=== PATIENT | male | born 1975 | race Two or more races ===

== ENCOUNTER 2016-09-23 08:46 | Emergency (ER) | payer OTHER ==
[~2016-09-23 08:46] MED LIST: LIPI10 PO; LORAZEPAM2 MG PO; OMEPRAZOLE DR20 M1 PO
[2016-09-23 10:49] VITALS: BP 120/78
== END 2016-09-23 10:49 | disposition home or self-care (01) ==
LOC: ED 08:46
DX: J02.9 Acute pharyngitis, unspecified (principal); M79.1 Myalgia; E78.00 Pure hypercholesterolemia, unspecified; K21.9 Gastro-esophageal reflux disease without esophagitis
CPT/HCPCS: 83880

== ENCOUNTER 2017-04-12 01:14 | Emergency (ER) | payer OTHER ==
[2017-04-12 04:13] VITALS: BP 147/90
== END 2017-04-12 04:14 | disposition home or self-care (01) ==
LOC: ED 01:14
DX: R06.00 Dyspnea, unspecified (principal); R07.9 Chest pain, unspecified; E78.00 Pure hypercholesterolemia, unspecified; K21.9 Gastro-esophageal reflux disease without esophagitis
CPT/HCPCS: Q0092

== ENCOUNTER 2017-10-08 19:22 | Emergency (ER) | payer OTHER ==
[2017-10-08 20:46] LABS: BASOPHIL % 0.4 % (0-2); PLATELET COUNT 239 x10^3mcL (130-400); RED CELL DISTRIBUTION WIDTH 12.7 % (11.5-14.5)
[2017-10-08 20:59] LABS: CALCIUM 8.6 mg/dL (8.5-10.1); CARBON DIOXIDE 25.1 mmol/L (21-32); CHLORIDE SERUM 105 mmol/L (98-107); CREATININE SERUM 1.1 mg/dL (0.7-1.3); GFR1 > 60 mL/min; GLUCOSE SERUM 98 mg/dL (74-106); POTASSIUM SERUM 3.6 mmol/L (3.5-5.1); SODIUM SERUM 141 mmol/L (136-145)
[2017-10-08 21:02] LABS: AMPHETAMINE QUAL UR NONE DETECTED (NEG <=1000)
[2017-10-08 21:04] LABS: ALKALINE PHOSPHATASE 87 U/L (46-116); ALT/SGPT 131 U/L (16-63); AST/SGOT 52 U/L (15-37); BILIRUBIN TOTAL 1.3 mg/dL (0.20-1.00); TOTAL PROTEIN, SERUM 7.7 g/dL (6.4-8.2)
[2017-10-09 00:01] VITALS: BP 127/97
== END 2017-10-09 00:01 | disposition home or self-care (01) ==
LOC: ED 19:22
PROVIDERS: Emergency Medicine
DX: R07.89 Other chest pain (principal); R06.02 Shortness of breath; E78.00 Pure hypercholesterolemia, unspecified; K21.9 Gastro-esophageal reflux disease without esophagitis; F41.9 Anxiety disorder, unspecified; Z88.0 Allergy status to penicillin
CPT/HCPCS: 83880; J7030; Q0092

== ENCOUNTER 2018-10-10 12:17 | Emergency (ER) | payer SELFPAY ==
[~2018-10-10] VITALS: Ht 167.6 cm; Wt 84.8 kg
[2018-10-10 12:26] VITALS: BP 141/83; Ht 167.6 cm; Wt 84.8 kg
== END 2018-10-10 13:23 | disposition left against medical advice (07) ==
LOC: ED 12:17
DX: F41.9 Anxiety disorder, unspecified (principal); E78.00 Pure hypercholesterolemia, unspecified; K21.9 Gastro-esophageal reflux disease without esophagitis; Z88.0 Allergy status to penicillin

== ENCOUNTER 2018-10-17 15:50 | Emergency (ER) | payer BC ==
[~2018-10-17] VITALS: Ht 167.6 cm; Wt 88.5 kg
[2018-10-17 15:58] VITALS: Ht 167.6 cm; Wt 88.5 kg
[2018-10-17 17:13] LABS: BASOPHIL % 0.3 % (0-2); PLATELET COUNT 250 x10^3mcL (130-400); RED CELL DISTRIBUTION WIDTH 12.4 % (11.5-14.5)
[2018-10-17 17:24] LABS: CALCIUM 9.3 mg/dL (8.5-10.1); CHLORIDE SERUM 107 mmol/L (98-107); CREATININE SERUM 1.3 mg/dL (0.7-1.3); GFR1 > 60 mL/min; GLUCOSE SERUM 100 mg/dL (74-106); POTASSIUM SERUM 3.9 mmol/L (3.5-5.1); SODIUM SERUM 143 mmol/L (136-145)
[2018-10-17 17:30] LABS: ALBUMIN 4.2 g/dL (3.4-5.0); ALKALINE PHOSPHATASE 82 U/L (46-116); ALT/SGPT 95 U/L (16-63); AST/SGOT 34 U/L (15-37); BILIRUBIN TOTAL 1.3 mg/dL (0.20-1.00); CHOLESTEROL 155 mg/dL (<200); CHOLESTEROL/HDL RATIO 3.2; HDL CHOLESTEROL 48 mg/dL (40-60); LIPASE 130 IU/L (73-393)
[2018-10-17 17:32] LABS: T3 TOTAL 1.25 ng/mL
[2018-10-17 17:33] LABS: TRIGLYCERIDES 250 mg/dL (<150)
[2018-10-17 18:06] LABS: FREE T4 1.09 ng/dL (0.76-1.46); FREE THYROXINE INDEX 3.3 ug/dL (1.4-4.5); T4(THYROXINE) 11.1 ug/dL (4.7-13.3)
[2018-10-17 18:33] VITALS: BP 142/93
[2018-10-17 18:35] LABS: microscopic required? NO
[2018-10-17 18:48] LABS: urine erythrocyte NEGATIVE (NEGATIVE)
[2018-10-17 18:49] LABS: AMPHETAMINE QUAL UR NONE DETECTED (See below)
== END 2018-10-17 18:41 | disposition home or self-care (01) ==
LOC: ED 15:50
PROVIDERS: Specialist
DX: F41.9 Anxiety disorder, unspecified (principal); R06.4 Hyperventilation; E78.00 Pure hypercholesterolemia, unspecified; K21.9 Gastro-esophageal reflux disease without esophagitis; Z88.0 Allergy status to penicillin
CPT/HCPCS: 83880; 84439; G0480; J2060; J7030